=== PATIENT | female | born 1955 | race Caucasian/White ===

== ENCOUNTER → 2016-09-06 | Outpatient (CLI) | payer OTHER ==
[~2016-09-06] MED LIST: DRON5CAP15 PO; OMNIPAQUE 350 MG/ML, 100ML BOTTLE ONE; ONDA4TAB10 PO; OXYC5TAB3 PO
== END | disposition home or self-care (01) ==
LOC: CFH 08:25
PROVIDERS: ATTEND Internal Medicine Hematology & Oncology
DX: C18.9 Malignant neoplasm of colon, unspecified (principal)
CPT/HCPCS: 71260; 74177; Q9967

== ENCOUNTER → 2016-12-02 | Outpatient (CLI) | payer OTHER | END | disposition home or self-care (01) | LOC: CFH 09:20 | PROVIDERS: ATTEND Internal Medicine Hematology & Oncology | DX: C18.7 Malignant neoplasm of sigmoid colon (principal); C78.7 Secondary malignant neoplasm of liver and intrahepatic bile duct; K43.5 Parastomal hernia without obstruction or gangrene; R91.1 Solitary pulmonary nodule | CPT/HCPCS: 71260; 74177; Q9967 ==

== ENCOUNTER → 2017-03-12 | Outpatient (CLI) | payer OTHER ==
[~2017-03-12] MED LIST changes: +CALC-55 PO; +MAGN400T36 PO; -OMNIPAQUE 350 MG/ML, 100ML BOTTLE ONE; +POTA10TA11 PO
== END | disposition home or self-care (01) ==
LOC: CFH 08:11
PROVIDERS: ATTEND Internal Medicine Hematology & Oncology
DX: Z01.818 Encounter for other preprocedural examination (principal); C18.7 Malignant neoplasm of sigmoid colon
CPT/HCPCS: 78452; 93017; A9502

== ENCOUNTER → 2017-03-26 | Outpatient (CLI) | payer OTHER | END | disposition home or self-care (01) | LOC: RAD 10:27 | PROVIDERS: ATTEND Internal Medicine Hematology & Oncology | DX: C18.7 Malignant neoplasm of sigmoid colon (principal); Z93.3 Colostomy status | CPT/HCPCS: 74270 ==

== ENCOUNTER 2017-05-20 08:10 | Day surgery (SDC) | payer OTHER ==
[~2017-05-20] VITALS: Ht 157.5 cm; Wt 74.3 kg
[2017-05-20] MEDS ORDERED: LACTATED RINGERS 1,000 ML IV SCH (09:00)
[2017-05-20] MEDS ORDERED: LIDOCAINE 1%, 2ML SQ PRN (09:00)
[2017-05-20] MEDS ORDERED: LIDOCAINE 1%, 2ML ONE (09:04)
[2017-05-20] MEDS ORDERED: MULT-658 PO (09:20)
[2017-05-20] MEDS ORDERED: IRON PO (09:20)
[2017-05-20 09:22] VITALS: BP 146/85
[2017-05-20] MEDS ORDERED: PROPOFOL 10 MG/ML, 20ML ONE ×2 (09:26)
[2017-05-20] MEDS ORDERED: HYDROmorphone 1 MG/ML, 1ML IV PRN (10:30)
[2017-05-20] MEDS ORDERED: FENTANYL PF 100 MCG/2ML IV PRN (10:30)
[2017-05-20] MEDS ORDERED: MIDAZOLAM 1 MG/ML, 2ML IV PRN (10:30)
[2017-05-20] MEDS ORDERED: PROMETHAZINE 25 MG/ML, 1ML IV PRN (10:30)
[2017-05-20] MEDS ORDERED: LABETALOL 5MG/ML, 20ML IV PRN (10:30)
[2017-05-20] MEDS ORDERED: ONDANSETRON 2MG/ML, 2ML IVPush PRN (10:30)
[2017-05-20] MEDS ORDERED: EPHEDRINE 50 MG/ML, 1ML IVPush PRN (10:30)
[2017-05-20] MEDS ORDERED: MEPERIDINE/PF 25MG/0.5ML IVPush PRN (10:30)
[2017-05-20] MEDS ORDERED: DIAZEPAM 5 MG/ML, 2ML IVPush PRN (10:30)
[2017-05-20] MEDS ORDERED: OXYcodone 5 MG/5 ML ORAL.SOL UDC PO PRN (10:30)
[2017-05-20] MEDS ORDERED: ACETAMINOPHEN 325 MG TABLET PO PRN (10:30)
[2017-05-20] MEDS ORDERED: LABETALOL 5MG/ML, 20ML ONE (10:54)
== END 2017-05-20 12:20 ==
LOC: OUT 08:10
PROVIDERS: ATTEND Internal Medicine Geriatric Medicine
DX: K83.8 Other specified diseases of biliary tract (principal); K91.89 Other postprocedural complications and disorders of digestive system; Z85.038 Personal history of other malignant neoplasm of large intestine; Z88.0 Allergy status to penicillin
CPT/HCPCS: 43275; 74328; C1769; J2704; J7120

== ENCOUNTER → 2017-06-06 | Outpatient (CLI) | payer OTHER ==
[~2017-06-06] MED LIST changes: +IRON PO; +MULT-658 PO
== END | disposition home or self-care (01) ==
LOC: PETCFH 09:39
PROVIDERS: ATTEND Internal Medicine Hematology & Oncology
DX: C18.7 Malignant neoplasm of sigmoid colon (principal)
CPT/HCPCS: 78306; A9503

== ENCOUNTER → 2017-06-06 | Outpatient (CLI) | payer OTHER ==
[~2017-06-06] MED LIST changes: +OMNIPAQUE 350 MG/ML, 100ML BOTTLE ONE
== END | disposition home or self-care (01) ==
LOC: CFH 09:44
PROVIDERS: ATTEND Internal Medicine Hematology & Oncology
DX: C18.7 Malignant neoplasm of sigmoid colon (principal); J84.10 Pulmonary fibrosis, unspecified; Z98.890 Other specified postprocedural states; Z90.49 Acquired absence of other specified parts of digestive tract
CPT/HCPCS: 71260; 74177; Q9967

== ENCOUNTER → 2017-09-17 | Outpatient (CLI) | payer OTHER ==
[~2017-09-17] MED LIST changes: -OMNIPAQUE 350 MG/ML, 100ML BOTTLE ONE
== END | disposition home or self-care (01) ==
LOC: CVU 09:28
PROVIDERS: ATTEND Family Medicine
DX: I08.0 Rheumatic disorders of both mitral and aortic valves (principal); J90 Pleural effusion, not elsewhere classified; I10 Essential (primary) hypertension; I51.7 Cardiomegaly; Z85.038 Personal history of other malignant neoplasm of large intestine
CPT/HCPCS: 93306

== ENCOUNTER → 2017-09-17 | Outpatient (CLI) | payer OTHER | LOC: PETCFH 08:27 | PROVIDERS: ATTEND Internal Medicine Hematology & Oncology | DX: C18.7 Malignant neoplasm of sigmoid colon (principal) | CPT/HCPCS: 78306; A9503 ==

== ENCOUNTER → 2017-12-29 | Outpatient (CLI) | payer OTHER ==
[~2017-12-29] MED LIST changes: +OMNIPAQUE 350 MG/ML, 100ML BOTTLE ONE
== END | disposition home or self-care (01) ==
LOC: CFH 10:19
PROVIDERS: ATTEND Internal Medicine Hematology & Oncology
DX: C18.7 Malignant neoplasm of sigmoid colon (principal); J98.4 Other disorders of lung; N13.30 Unspecified hydronephrosis
CPT/HCPCS: 71260; 74177; 82565; Q9967

== ENCOUNTER 2018-01-05 09:14 | Day surgery (SDC) | payer OTHER ==
[~2018-01-05] VITALS: Ht 158.8 cm; Wt 83.5 kg
[~2018-01-05 09:14] MED LIST changes: -OMNIPAQUE 350 MG/ML, 100ML BOTTLE ONE
[2018-01-05] MEDS ORDERED: METO25TA35 PO (09:50)
[2018-01-05] MEDS ORDERED: LOSA25TA5 PO (09:50)
[2018-01-05] MEDS ORDERED: SODIUM CHLORIDE 0.9% 1,000 ML IV SCH ×2 (09:52→10:30)
[2018-01-05 09:59] VITALS: BP 185/87
[2018-01-05] MEDS ORDERED: FLUMAZENIL 0.1 MG/1 ML, 5ML ONE (10:13)
[2018-01-05] MEDS ORDERED: FENTANYL PF 100 MCG/2ML ONE ×2 (10:13)
[2018-01-05] MEDS ORDERED: MIDAZOLAM 1 MG/ML, 5ML ONE (10:13)
[2018-01-05] MEDS ORDERED: NALOXONE 1 MG/ML, 2ML ONE (10:14)
[2018-01-05] MEDS ORDERED: LIDOCAINE-MPF 1%, 2ML ONE ×3 (10:34→10:35)
== END 2018-01-05 13:05 | disposition home or self-care (01) ==
LOC: OUT 09:14
PROVIDERS: ATTEND Internal Medicine Hematology & Oncology
DX: C18.7 Malignant neoplasm of sigmoid colon (principal); I10 Essential (primary) hypertension; Z88.0 Allergy status to penicillin; Z79.899 Other long term (current) drug therapy
CPT/HCPCS: 49405; 75989; 87070; 87075; 87205; 88112; 88305; 99156; 99157; C1894; J2250; J3010; J3490; J7030; J2310

== ENCOUNTER → 2018-08-06 | Outpatient (CLI) | payer OTHER ==
[~2018-08-06] MED LIST changes: +LOSA25TA25 PO; +METO25TA35 PO; +OMNIPAQUE 350 MG/ML, 100ML BOTTLE ONE
== END | disposition home or self-care (01) ==
LOC: CFH 09:19
PROVIDERS: ATTEND Internal Medicine Hematology & Oncology
DX: C18.7 Malignant neoplasm of sigmoid colon (principal); N13.30 Unspecified hydronephrosis; N28.9 Disorder of kidney and ureter, unspecified; R59.1 Generalized enlarged lymph nodes; Z90.49 Acquired absence of other specified parts of digestive tract
CPT/HCPCS: 71260; 74177; Q9967

== ENCOUNTER → 2018-11-04 | Outpatient (CLI) | payer OTHER | END | disposition home or self-care (01) | LOC: CFH 12:17 | PROVIDERS: ATTEND Internal Medicine Hematology & Oncology | DX: C18.7 Malignant neoplasm of sigmoid colon (principal); K42.9 Umbilical hernia without obstruction or gangrene; K43.9 Ventral hernia without obstruction or gangrene; N28.89 Other specified disorders of kidney and ureter; N26.1 Atrophy of kidney (terminal); R59.1 Generalized enlarged lymph nodes | CPT/HCPCS: 71260; 74177; Q9967 ==

== ENCOUNTER → 2019-05-03 | Outpatient (CLI) | payer MEDICARE | END | disposition home or self-care (01) | LOC: CFH 09:14 | PROVIDERS: ATTEND Internal Medicine Hematology & Oncology | DX: C18.7 Malignant neoplasm of sigmoid colon (principal); N28.9 Disorder of kidney and ureter, unspecified; N13.30 Unspecified hydronephrosis; K43.9 Ventral hernia without obstruction or gangrene; R59.0 Localized enlarged lymph nodes | CPT/HCPCS: 71260; 74177; Q9967 ==

== ENCOUNTER 2019-07-21 14:06 | Day surgery (SDC) | payer MEDICARE ==
[~2019-07-21] VITALS: Ht 154.9 cm; Wt 78.7 kg
[~2019-07-21 14:06] MED LIST changes: +GLYCOPYRROLATE 0.2MG/1ML, 5ML ONE; -OMNIPAQUE 350 MG/ML, 100ML BOTTLE ONE; +PHENYLEPHRINE 10 MG/ML ONE
[2019-07-21] MEDS ORDERED: LACTATED RINGERS 1,000 ML IV SCH ×2 (14:21→15:08)
[2019-07-21] MEDS ORDERED: CAPE500T24 PO (14:49)
[2019-07-21 14:51] VITALS: BP 174/85
[2019-07-21 15:31] LABS: BASOPHILS # (AUTO) 0.01 x10^3/uL (0-0.1); BASOPHILS % (AUTO) 0 % (0-1); EOSINOPHILS # (AUTO) 0.13 x10^3/uL (0-0.4); EOSINOPHILS % (AUTO) 2 % (1-7); LYMPHOCYTES # (AUTO) 1.12 x10^3/uL (1-3.4); LYMPHOCYTES % (AUTO) 20 % (22-44); MD NO; MEAN CORPUSCULAR HEMOGLOBIN 31.9 pg (27.0-34.8); MEAN CORPUSCULAR HGB CONC 32.7 g/dL (32.4-35.8); MEAN CORPUSCULAR VOLUME 97.3 fL (80-100); MEAN PLATELET VOLUME 8.3 fL (7.4-10.4); MONOCYTES # (AUTO) 0.42 x10^3/uL (0.2-0.8); MONOCYTES % (AUTO) 7 % (2-9); NEUTROPHILS # (AUTO) 3.97 x10^3/uL (1.8-6.8); NEUTROPHILS % (AUTO) 70 % (42-75); PLATELET COUNT 106 x10^3/uL (130-400); RED CELL DISTRIBUTION WIDTH 21.5 % (9.6-15.2)
[2019-07-21] MEDS ORDERED: MIDAZOLAM 1 MG/ML, 2ML ONE (15:32)
[2019-07-21] MEDS ORDERED: PROPOFOL 10 MG/ML, 20ML ONE (15:32)
[2019-07-21] MEDS ORDERED: FENTANYL PF 100 MCG/2ML ONE (15:32)
[2019-07-21] MEDS ORDERED: LIDOCAINE-MPF 2% ,5ML ONE (15:32)
[2019-07-21] MEDS ORDERED: HYDROmorphone 2 MG/ML, 1ML IVPush PRN (16:00)
[2019-07-21] MEDS ORDERED: ACETAMINOPHEN 325 MG TABLET PO PRN (16:00)
[2019-07-21] MEDS ORDERED: MEPERIDINE/PF 25MG/ML,1ML IVPush PRN (16:00)
[2019-07-21] MEDS ORDERED: PROMETHAZINE 25 MG/ML, 1ML IV PRN (16:00)
[2019-07-21] MEDS ORDERED: ONDANSETRON 2MG/ML, 2ML IV PRN (16:00)
[2019-07-21] MEDS ORDERED: EPHEDRINE 50 MG/ML, 1ML IVPush PRN (16:00)
[2019-07-21] MEDS ORDERED: hydrALAzine 20 MG/ML, 1ML IV PRN (16:00)
[2019-07-21] MEDS ORDERED: OXYcodone 5 MG/5 ML ORAL.SOL UDC PO PRN (16:00)
[2019-07-21] MEDS ORDERED: FENTANYL PF 100 MCG/2ML IV PRN (16:00)
[2019-07-21] MEDS ORDERED: DEXAMETHASONE 4 MG/ML, 1ML ONE ×2 (16:09)
[2019-07-21] MEDS ORDERED: ONDANSETRON 2MG/ML, 2ML ONE (16:09)
[2019-07-21] MEDS ORDERED: EPHEDRINE 50 MG/ML, 1ML ONE (16:23)
[2019-07-21] MEDS ORDERED: CEFAZOLIN 1,000 MG ONE ×2 (16:23)
[2019-07-21] MEDS ORDERED: OMNIPAQUE 350 MG/ML, 50 ML BOTTLE IV ONE ×2 (16:23→17:02)
[2019-07-21] MEDS ORDERED: PHENAZOPYRIDINE 200 MG TABLET ONE (17:33)
[2019-07-21] MEDS ORDERED: LABETALOL 5MG/ML, 20ML ONE (17:35)
[2019-07-21] MEDS: LABETALOL 5MG/ML, 20ML IV PRN ×2 (17:55→18:09)
[2019-07-21] MEDS ORDERED: PHENAZOPYRIDINE 200 MG TABLET PO ONE (18:00)
[2019-07-21] MEDS ORDERED: OMNIPAQUE 350 MG/ML, 50 ML BOTTLE ONE (18:14)
== END 2019-07-21 18:55 | disposition home or self-care (01) ==
LOC: OR 14:06
PROVIDERS: ATTEND Urology
DX: N13.39 Other hydronephrosis (principal); N35.82 Other urethral stricture, female; C18.9 Malignant neoplasm of colon, unspecified; Z88.0 Allergy status to penicillin; Z79.899 Other long term (current) drug therapy
CPT/HCPCS: 36415; 52332; 52344; 74420; 85025; 93005; C1726; C1769; C2617; C2625; J0690; J1100; J2250; J2370; J2405; J2704; J3010; J7120; Q9967

== ENCOUNTER → 2019-08-04 | Outpatient (CLI) | payer MEDICARE, OTHER ==
[~2019-08-04] MED LIST changes: +CAPE500T24 PO; -GLYCOPYRROLATE 0.2MG/1ML, 5ML ONE; +OMNIPAQUE 350 MG/ML, 100ML BOTTLE ONE; -PHENYLEPHRINE 10 MG/ML ONE
== END | disposition home or self-care (01) ==
LOC: CFH 11:43
PROVIDERS: ATTEND Internal Medicine Hematology & Oncology
DX: C18.7 Malignant neoplasm of sigmoid colon (principal); K76.0 Fatty (change of) liver, not elsewhere classified; K43.9 Ventral hernia without obstruction or gangrene; N26.1 Atrophy of kidney (terminal); Z90.49 Acquired absence of other specified parts of digestive tract
CPT/HCPCS: 71260; 74177; Q9967

== ENCOUNTER 2019-11-09 09:11 | Outpatient (CLI) | payer MEDICARE ==
[~2019-11-09 09:11] MED LIST changes: -OMNIPAQUE 350 MG/ML, 100ML BOTTLE ONE
[2019-11-09] MEDS ORDERED: OMNIPAQUE 350 MG/ML, 100ML BOTTLE ONE (16:29)
== END 2019-11-09 23:59 | disposition home or self-care (01) ==
LOC: CFH 09:11
PROVIDERS: ATTEND Internal Medicine Hematology & Oncology
DX: C18.7 Malignant neoplasm of sigmoid colon (principal); N13.39 Other hydronephrosis; K43.9 Ventral hernia without obstruction or gangrene
CPT/HCPCS: 71260; 74177; Q9967

== ENCOUNTER → 2019-11-25 | Outpatient (CLI) | payer MEDICARE, OTHER | END | disposition home or self-care (01) | LOC: PETCFH 12:34 | PROVIDERS: ATTEND Internal Medicine Hematology & Oncology | DX: C18.7 Malignant neoplasm of sigmoid colon (principal); C77.9 Secondary and unspecified malignant neoplasm of lymph node, unspecified; J34.1 Cyst and mucocele of nose and nasal sinus; J34.89 Other specified disorders of nose and nasal sinuses; N13.30 Unspecified hydronephrosis; K43.9 Ventral hernia without obstruction or gangrene; K42.9 Umbilical hernia without obstruction or gangrene | CPT/HCPCS: 78815; A9552 ==

== ENCOUNTER 2019-12-08 05:42 | Day surgery (SDC) | payer MEDICARE, OTHER ==
[~2019-12-08] VITALS: Ht 157.5 cm; Wt 80.0 kg
[2019-12-08] MEDS ORDERED: LACTATED RINGERS 1,000 ML IV SCH (06:38)
[2019-12-08] MEDS ORDERED: LIDOCAINE-MPF 1%, 2ML INFIL ONE (07:00)
[2019-12-08] MEDS ORDERED: CHLORHEXIDINE 15 ML UDC MM ONE (07:00)
[2019-12-08] MEDS ORDERED: FENTANYL PF 100 MCG/2ML ONE (07:10)
[2019-12-08] MEDS ORDERED: MIDAZOLAM 1 MG/ML, 2ML ONE (07:10)
[2019-12-08] MEDS ORDERED: LIDOCAINE-MPF 2% ,5ML ONE (07:10)
[2019-12-08] MEDS ORDERED: PROPOFOL 10 MG/ML, 20ML ONE (07:10)
[2019-12-08] MEDS ORDERED: ACETAMINOPHEN 500 MG TABLET ONE (07:17)
[2019-12-08 07:23] VITALS: BP 182/93
[2019-12-08] MEDS ORDERED: hydrALAzine 20 MG/ML, 1ML IV PRN (07:30)
[2019-12-08] MEDS ORDERED: ONDANSETRON 2MG/ML, 2ML IVPush PRN (07:30)
[2019-12-08] MEDS ORDERED: EPHEDRINE 50 MG/ML, 1ML IVPush PRN (07:30)
[2019-12-08] MEDS ORDERED: LABETALOL 5MG/ML, 20ML IV PRN (07:30)
[2019-12-08] MEDS ORDERED: FENTANYL PF 100 MCG/2ML IV PRN (07:30)
[2019-12-08] MEDS ORDERED: HYDROmorphone 1 MG/ML, 1ML INJ IVPush PRN (07:30)
[2019-12-08] MEDS ORDERED: PROMETHAZINE 25 MG/ML, 1ML IVPush PRN (07:30)
[2019-12-08] MEDS ORDERED: ACETAMINOPHEN 500 MG TABLET PO ONE (07:30)
[2019-12-08] MEDS ORDERED: MEPERIDINE/PF 25MG/0.5ML IVPush PRN (07:30)
[2019-12-08] MEDS ORDERED: OXYcodone 5 MG/5 ML ORAL.SOL UDC PO PRN (07:30)
[2019-12-08] MEDS ORDERED: CEFAZOLIN 1,000 MG ONE (07:42)
[2019-12-08] MEDS ORDERED: hydrALAzine 20 MG/ML, 1ML ONE (07:48)
[2019-12-08] MEDS ORDERED: DEXAMETHASONE 4 MG/ML, 1ML ONE ×2 (07:49)
[2019-12-08] MEDS ORDERED: ONDANSETRON 2MG/ML, 2ML ONE (07:49)
[2019-12-08] MEDS ORDERED: OMNIPAQUE 350 MG/ML, 50 ML BOTTLE ONE (08:11)
== END 2019-12-08 10:55 | disposition home or self-care (01) ==
LOC: OUT 05:42
PROVIDERS: ATTEND Urology
DX: N13.1 Hydronephrosis with ureteral stricture, not elsewhere classified (principal); Z11.59 Encounter for screening for other viral diseases; C18.9 Malignant neoplasm of colon, unspecified; I10 Essential (primary) hypertension; Z88.0 Allergy status to penicillin; Z79.899 Other long term (current) drug therapy; Z72.89 Other problems related to lifestyle; Z98.890 Other specified postprocedural states
CPT/HCPCS: 36415; 52332; 74420; 87635; 93005; C1758; C1769; C2617; J0690; J1100; J2250; J2405; J2704; J3010; J7120; Q9967; J0360

== ENCOUNTER 2019-12-24 07:26 | Outpatient (CLI) | payer MEDICARE, OTHER | END 2019-12-24 23:59 | disposition home or self-care (01) | LOC: ROC 07:26 | PROVIDERS: ATTEND Radiology Radiation Oncology | DX: C18.9 Malignant neoplasm of colon, unspecified (principal); N13.30 Unspecified hydronephrosis; Z90.49 Acquired absence of other specified parts of digestive tract | CPT/HCPCS: G0463 ==

== ENCOUNTER → 2020-02-01 | Outpatient (CLI) | payer MEDICARE, OTHER | END | disposition home or self-care (01) | LOC: ROC 09:20 | PROVIDERS: ATTEND Radiology Radiation Oncology | DX: C18.7 Malignant neoplasm of sigmoid colon (principal); C77.5 Secondary and unspecified malignant neoplasm of intrapelvic lymph nodes | CPT/HCPCS: G0463 ==

== ENCOUNTER → 2020-02-15 | Outpatient (CLI) | payer MEDICARE, OTHER ==
[~2020-02-15] MED LIST changes: +OMNIPAQUE 350 MG/ML, 100ML BOTTLE ONE
== END | disposition home or self-care (01) ==
LOC: CFH 08:58
PROVIDERS: ATTEND Internal Medicine Hematology & Oncology
DX: C18.7 Malignant neoplasm of sigmoid colon (principal); C77.9 Secondary and unspecified malignant neoplasm of lymph node, unspecified; J98.4 Other disorders of lung; N26.1 Atrophy of kidney (terminal); K42.9 Umbilical hernia without obstruction or gangrene; K43.9 Ventral hernia without obstruction or gangrene
CPT/HCPCS: 71260; 74177; Q9967

== ENCOUNTER → 2020-02-24 | Outpatient (CLI) | payer MEDICARE, OTHER ==
[~2020-02-24] MED LIST changes: -OMNIPAQUE 350 MG/ML, 100ML BOTTLE ONE
== END | disposition home or self-care (01) ==
LOC: ROC 10:25
PROVIDERS: ATTEND Radiology Radiation Oncology
DX: C18.7 Malignant neoplasm of sigmoid colon (principal); C79.89 Secondary malignant neoplasm of other specified sites; I10 Essential (primary) hypertension; Z79.899 Other long term (current) drug therapy; Z90.49 Acquired absence of other specified parts of digestive tract
CPT/HCPCS: G0463

== ENCOUNTER → 2020-04-03 | Outpatient (CLI) | payer MEDICARE, OTHER ==
[~2020-04-03] MED LIST changes: +ASPI-696 PO; +VITAMIN D PO
== END | disposition home or self-care (01) ==
LOC: STAR 14:39
PROVIDERS: ATTEND Anesthesiology
DX: Z01.812 Encounter for preprocedural laboratory examination (principal); Z20.828 Contact with and (suspected) exposure to other viral communicable diseases
CPT/HCPCS: 87635

== ENCOUNTER 2020-04-05 05:45 | Day surgery (SDC) | payer MEDICARE, OTHER ==
[~2020-04-05] VITALS: Ht 157.5 cm; Wt 82.2 kg
[~2020-04-05 05:45] MED LIST changes: -ASPI-696 PO; -VITAMIN D PO
[2020-04-05 06:45] VITALS: BP 170/88
[2020-04-05] MEDS ORDERED: CHLORHEXIDINE 15 ML UDC MM ONE (07:00)
[2020-04-05] MEDS ORDERED: LACTATED RINGERS 1,000 ML IV SCH (07:00)
[2020-04-05] MEDS ORDERED: VITAMIN D PO (07:05)
[2020-04-05] MEDS ORDERED: ASPI-696 PO (07:05)
[2020-04-05] MEDS ORDERED: FENTANYL PF 100 MCG/2ML ONE (07:26)
[2020-04-05] MEDS ORDERED: DEXAMETHASONE 4 MG/ML, 1ML ONE (07:26)
[2020-04-05 07:27] LABS: BASOPHILS % (AUTO) 0 % (0-1); EOSINOPHILS % (AUTO) 2 % (1-7); LYMPHOCYTES % (AUTO) 11 % (22-44); MEAN CORPUSCULAR HGB CONC 31.8 g/dL (32.4-35.8); MEAN PLATELET VOLUME 7.9 fL (7.4-10.4); MONOCYTES % (AUTO) 12 % (2-9); NEUTROPHILS % (AUTO) 74 % (42-75); PLATELET COUNT 92 x10^3/uL (130-400); RED BLOOD COUNT 4.46 x10^6/uL (3.82-5.3); RED CELL DISTRIBUTION WIDTH 14.8 % (9.6-15.2)
[2020-04-05] MEDS ORDERED: PROPOFOL 10 MG/ML, 20ML ONE (07:27)
[2020-04-05] MEDS ORDERED: ONDANSETRON 2MG/ML, 2ML ONE (07:27)
[2020-04-05] MEDS ORDERED: ROCURONIUM 10MG/ML,5ML ONE (07:27)
[2020-04-05 07:28] LABS: MD NO
[2020-04-05] MEDS ORDERED: CEFAZOLIN 1,000 MG ONE (07:28)
[2020-04-05] MEDS ORDERED: GLYCOPYRROLATE 0.2MG/1ML, 5ML ONE (07:28)
[2020-04-05 07:34] LABS: ALANINE AMINOTRANSFERASE 26 U/L (12-78); ALBUMIN 3.7 g/dL (3.4-5.0); ANION GAP 4 mmol/L (5-15); CHLORIDE 112 mmol/L (98-107); CREATININE 1.14 mg/dL (0.55-1.02)
[2020-04-05 07:36] LABS: ALKALINE PHOSPHATASE 100 U/L (45-117); BILIRUBIN,TOTAL 0.4 mg/dL (0.2-1.0); TOTAL PROTEIN 7.4 g/dL (6.4-8.2)
[2020-04-05] MEDS ORDERED: OXYcodone 5 MG/5 ML ORAL.SOL UDC PO PRN (08:00)
[2020-04-05] MEDS ORDERED: MIDAZOLAM 1 MG/ML, 2ML IV PRN (08:00)
[2020-04-05] MEDS ORDERED: DIAZEPAM 5 MG/ML, 2ML IVPush PRN (08:00)
[2020-04-05] MEDS ORDERED: EPHEDRINE 50 MG/ML, 1ML IVPush PRN (08:00)
[2020-04-05] MEDS ORDERED: HYDROmorphone 1 MG/ML, 1ML INJ IVPush PRN (08:00)
[2020-04-05] MEDS ORDERED: hydrALAzine 20 MG/ML, 1ML IV PRN (08:00)
[2020-04-05] MEDS ORDERED: ACETAMINOPHEN 325 MG TABLET PO PRN (08:00)
[2020-04-05] MEDS ORDERED: PROMETHAZINE 12.5 MG SUPP PR PRN (08:00)
[2020-04-05] MEDS ORDERED: MEPERIDINE/PF 25MG/0.5ML IVPush PRN (08:00)
[2020-04-05] MEDS ORDERED: ONDANSETRON 2MG/ML, 2ML IVPush PRN (08:00)
[2020-04-05] MEDS ORDERED: ALBUTEROL SULFATE 2.5 MG/3 ML NPPB PRN (08:00)
[2020-04-05] MEDS ORDERED: LABETALOL 5MG/ML, 20ML IV PRN (08:00)
[2020-04-05] MEDS ORDERED: PROMETHAZINE 25 MG/ML, 1ML IVPush PRN (08:00)
[2020-04-05] MEDS ORDERED: FENTANYL PF 100 MCG/2ML IV PRN (08:00)
[2020-04-05] MEDS ORDERED: DIPHENHYDRAMINE 50 MG/ML, 1ML IVPush PRN (08:00)
[2020-04-05] MEDS ORDERED: PHENAZOPYRIDINE 200 MG TABLET ONE (08:05)
[2020-04-05 08:16] LABS: MICROSCOPIC INDICATED
[2020-04-05] MEDS ORDERED: PHENAZOPYRIDINE 200 MG TABLET PO ONE (08:30)
== END 2020-04-05 09:15 | disposition home or self-care (01) ==
LOC: OUT 05:45
PROVIDERS: ATTEND Urology
DX: Z46.6 Encounter for fitting and adjustment of urinary device (principal); N13.1 Hydronephrosis with ureteral stricture, not elsewhere classified; C18.9 Malignant neoplasm of colon, unspecified; I10 Essential (primary) hypertension; E78.5 Hyperlipidemia, unspecified; Z79.891 Long term (current) use of opiate analgesic; Z79.899 Other long term (current) drug therapy; Z88.0 Allergy status to penicillin; Z90.49 Acquired absence of other specified parts of digestive tract
CPT/HCPCS: 36415; 52332; 74018; 80053; 81001; 85025; 93005; C1769; C2617; J0690; J1100; J2405; J2704; J3010; J7120; 76000

== ENCOUNTER → 2020-06-26 | Outpatient (CLI) | payer MEDICARE, OTHER ==
[~2020-06-26] MED LIST changes: +ASPI-696 PO; +OMNIPAQUE 350 MG/ML, 100ML BOTTLE ONE; +VITAMIN D PO
== END | disposition home or self-care (01) ==
LOC: CFH 10:17
PROVIDERS: ATTEND Internal Medicine Hematology & Oncology
DX: C18.7 Malignant neoplasm of sigmoid colon (principal); K43.9 Ventral hernia without obstruction or gangrene; R16.1 Splenomegaly, not elsewhere classified; N26.1 Atrophy of kidney (terminal); R18.8 Other ascites
CPT/HCPCS: 71260; 74177; Q9967

== ENCOUNTER 2020-09-28 11:40 | Day surgery (SDC) | payer MEDICARE, OTHER ==
[~2020-09-28] VITALS: Ht 157.5 cm; Wt 78.2 kg
[~2020-09-28 11:40] MED LIST changes: +FENTANYL PF 100 MCG/2ML ONE; +MIDAZOLAM 1 MG/ML, 2ML ONE; -OMNIPAQUE 350 MG/ML, 100ML BOTTLE ONE; -OXYC5TAB3 PO; +OXYC5TAB98 PO
[2020-09-28] MEDS ORDERED: OMNIPAQUE 350 MG/ML, 50 ML BOTTLE ONE (12:26)
[2020-09-28 12:28] VITALS: BP 179/93
[2020-09-28] MEDS ORDERED: PROMETHAZINE 25 MG/ML, 1ML IVPush PRN (13:00)
[2020-09-28] MEDS ORDERED: OXYcodone 5 MG/5 ML ORAL.SOL UDC PO PRN (13:00)
[2020-09-28] MEDS ORDERED: METOCLOPRAMIDE 5 MG/ML, 2ML IVPush PRN (13:00)
[2020-09-28] MEDS ORDERED: DIAZEPAM 5 MG/ML, 2ML IVPush PRN (13:00)
[2020-09-28] MEDS ORDERED: LACTATED RINGERS 1,000 ML IV SCH (13:00)
[2020-09-28] MEDS ORDERED: DIPHENHYDRAMINE 50 MG/ML, 1ML IVPush PRN (13:00)
[2020-09-28] MEDS ORDERED: HALOPERIDOL 5 MG/ML IV PRN (13:00)
[2020-09-28] MEDS ORDERED: ACETAMINOPHEN 325 MG TABLET PO PRN (13:00)
[2020-09-28] MEDS ORDERED: CHLORHEXIDINE 15 ML UDC PO ONE (13:00)
[2020-09-28] MEDS ORDERED: ALBUTEROL/IPRATROPIUM 2.5MG/0.5MG, 3 ML NPPB PRN (13:00)
[2020-09-28] MEDS ORDERED: EPHEDRINE 50 MG/ML, 1ML IVPush PRN (13:00)
[2020-09-28] MEDS ORDERED: hydrALAzine 20 MG/ML, 1ML IV PRN (13:00)
[2020-09-28] MEDS ORDERED: FENTANYL PF 100 MCG/2ML IV PRN (13:00)
[2020-09-28] MEDS ORDERED: ONDANSETRON 2MG/ML, 2ML IVPush PRN (13:00)
[2020-09-28] MEDS ORDERED: METOPROLOL 1 MG/ML, 5ML IV PRN (13:00)
[2020-09-28] MEDS ORDERED: LABETALOL 5MG/ML, 20ML IV PRN (13:00)
[2020-09-28] MEDS ORDERED: HYDROmorphone 1 MG/ML, 1ML INJ IVPush PRN (13:00)
[2020-09-28] MEDS ORDERED: ONDANSETRON 2MG/ML, 2ML ONE (13:40)
[2020-09-28] MEDS ORDERED: PHENYLEPHRINE 10 MG/ML ONE (13:40)
[2020-09-28] MEDS ORDERED: PROPOFOL 10 MG/ML, 20ML ONE (13:40)
[2020-09-28] MEDS ORDERED: CEFAZOLIN 1,000 MG ONE (13:40)
[2020-09-28 13:43] LABS: INTERNATIONAL NORMALIZED RATIO 1.05 (0.93-1.1); PROTHROMBIN TIME 11.2 Seconds (9.6-11.5)
[2020-09-28 13:55] LABS: MICROSCOPIC INDICATED
== END 2020-09-28 16:15 | disposition home or self-care (01) ==
LOC: OR 11:40
PROVIDERS: ATTEND Urology
DX: N13.30 Unspecified hydronephrosis (principal); I10 Essential (primary) hypertension; C18.9 Malignant neoplasm of colon, unspecified; Z88.0 Allergy status to penicillin; Z79.899 Other long term (current) drug therapy; Z79.2 Long term (current) use of antibiotics; Z98.890 Other specified postprocedural states; Z20.822 Contact with and (suspected) exposure to COVID-19; Z79.82 Long term (current) use of aspirin; Z72.89 Other problems related to lifestyle
CPT/HCPCS: 36415; 52332; 81001; 85610; 87086; 87635; 93005; C2617; J0690; J2250; J2370; J2405; J2704; J3010; J7120; 76000; Q9967